=== PATIENT | female | born 1975 | race Caucasian/White ===

== ENCOUNTER 2017-03-16 23:52 | Emergency (ER) | payer MEDICAID ==
[~2017-03-16] VITALS: Ht 165.1 cm; Wt 82.8 kg
[2017-03-17 01:02] VITALS: Ht 165.1 cm; Wt 82.8 kg
[2017-03-17] MEDS ORDERED: CETI10CA PO (04:34)
[2017-03-17] MEDS ORDERED: GUAI473L22 PO (04:34)
[2017-03-17] MEDS ORDERED: IBUP-1542 PO (04:34)
[2017-03-17] MEDS ORDERED: ALBU8.5H3 INH (04:34)
--- NOTE | 2017-03-17 05:05 | ERD ---
ER Documentation Chief Complaint Chief Complaint cough, congestion, fever x 1 week. family w/ same symptoms HPI 42-year-old female presents to the emergency department for complaints of cough congestion runny nose for 1 week. Patient has been having dry cough and fever. Patient does not have any fever at this time, last fever episode was 2 days ago. Patient has wheezing at times. Patient is not have any sore throat or ear pain. Patient denies any chest pain or palpitations. ROS All systems reviewed and are negative except as per history of present illness. Medications Home Meds Active Scripts Albuterol Sulfate* (Proair HFA*) 8.5 Gm Hfa.aer.ad, 2 PUFF INH Q4H Y for WHEEZING AND SOB, #1 INHALER Prov:EMANUEL MCKENNA NP 03/17/17 Ibuprofen* (Motrin*) 600 Mg Tab, 600 MG PO Q6H Y for PAIN AND OR ELEVATED TEMP, #30 TAB Prov:EMANUEL MCKENNA NP 03/17/17 Cetirizine Hcl* (Zyrtec*) 10 Mg Capsule, 10 MG PO DAILY, #30 TAB.CHEW Prov:EMANUEL MCKENNA NP 03/17/17 Guaifenesin-Codeine Phosphate* (Guaifenesin* AC Cough Syrup) 473 Ml Liquid, 10 ML PO Q4H Y for COUGH, #60 ML Prov:EMANUEL MCKENNA NP 03/17/17 Allergies Allergies: Coded Allergies: No Known Drug Allergy (Verified Allergy, Unknown, 10/16/13) PMhx/Soc Medical and Surgical Hx: pt denies Medical Hx History of Surgery: Yes (cholecystectomy) Hx Alcohol Use: No Hx Substance Use: No Hx Tobacco Use: No Smoking Status: Never smoker FmHx Family History: No coronary disease, No diabetes, No other Physical Exam Vitals Vital Signs Date Time Temp Pulse Resp B/P Pulse Ox O2 Delivery O2 Flow Rate FiO2 03/17/17 01:02 97.0 59 18 127/75 99 Physical Exam GENERAL: The patient is well developed and appropriate for usual state of health, in no apparent distress. CHEST: Clear to auscultation bilaterally. There are no rales, wheezes or rhonchi. HEART: Regular rate and rhythm. No murmurs, clicks, rubs or gallops. No S3 or S4. ABDOMEN: Soft, nontender and nondistended. Good bowel sounds. No rebound or guarding. No gross peritonitis. No gross organomegaly or masses. No Davis sign or McBurney point tenderness. BACK: No midline or flank tenderness. EXTREMITIES: Equal pulses bilaterally. There is no peripheral clubbing, cyanosis or edema. No focal swelling or erythema. Full range of motion. Grossly neurovascularly intact. NEURO: Alert and oriented. Cranial nerves 2-12 intact. Motor strength in all 4 extremities with 5/5 strength. Sensation grossly intact. Normal speech and gait. SKIN: There is no apparent rash or petechia. The skin is warm and dry. HEMATOLOGIC AND LYMPHATIC: There is no evidence of excessive bruising or lymphedema. No gross cervical, axillary, or inguinal lymphadenopathy. Procedures/MDM Medical Decision Making: Patient symptoms are most likely consistent with acute bronchitis, which viral in origin. There is low suspicion for Pneumonia at this time since patients lungs sounds are clear, patient O2 saturation is normal and patient doesnt show any respiratory distress. Patients chest xray doesnt show infiltrates or any other cardiopulmonary emergencies at this time. There is low suspicion for other cardiopulmonary emergencies at this time such as CHF, Pulmonary Embolism, Pneumothorax, Aortic Aneurysm or any other cardiopulmonary emergencies at this time. There is low suspicion for sepsis. Patient appears well and is hemodynamically stable. Fever is controlled with medicines. Disposition: Home. Condition: Stable Prescriptions: Albuterol ibuprofen Zyrtec guaifenesin with codeine Instructions: Patient is advised to take medications as prescribed. Patient is advised to rest. Patient advised to increase fluid intake, do humidifier at home and if possible, do salt water gargles. Patient is advised that if symptoms are worse, shortness of breath, uncontrolled fever, stridor, vomiting, worst signs and symptoms to return to emergency department immediately. Otherwise, patient is advised to follow up with primary doctor in 5-7 days. Disclaimer: Inadvertent spelling and grammatical errors are likely due to EHR/ dictation software use and do not reflect on the overall quality of patient care. Also, please note that the electronic time recorded on this note does not necessarily reflect the actual time of the patient encounter. Departure Diagnosis: Primary Impression: Acute bronchitis Bronchitis organism: unspecified organism Qualified Code: J20.9 - Acute bronchitis, unspecified organism Condition: Stable Patient Instructions: Bronchitis With Wheezing (Adult) EMANUEL MCKENNA NP Mar 17, 2017 05:05
[2017-03-17 05:09] VITALS: BP 139/82; PULSE 75; RESP 20; TEMP 96.8
== END 2017-03-17 05:10 | disposition home or self-care (01) ==
LOC: FTE 23:52
DX: J20.9 Acute bronchitis, unspecified (principal)
CPT/HCPCS: 99283

== ENCOUNTER 2018-06-25 15:14 | Emergency (ER) | payer MEDICAID, OTHER ==
[~2018-06-25] VITALS: Wt 90.0 kg
[~2018-06-25 15:14] MED LIST: ALBU8.5H8 INH; CETI10CA PO; GUAI473L22 PO; IBUP-1542 PO
[2018-06-25 15:17] VITALS: BP 140/70; PULSE 71; RESP 18
[2018-06-25] MEDS ORDERED: KETOROLAC 30 MG INJ IM STA (16:48)
[2018-06-25] MEDS ORDERED: D-ME473S2 PO (17:39)
[2018-06-25] MEDS ORDERED: IBUP-1542 PO (17:39)
[2018-06-25] MEDS ORDERED: AZIT250T PO (17:39)
--- NOTE | 2018-06-25 17:42 | ERD ---
ER Documentation Chief Complaint Chief Complaint FLU LIKE SYMPTOMS,COUGH,BODY ACHES HPI 43-year female presents with productive cough, body aches which she states is been for the last month. She denies abdominal pain, diarrhea, vomiting. She denies chest pain. She may have had tactile fevers but no measured temperature. Has not been seen for this prior. ROS All systems reviewed and are negative except as per history of present illness. Medications Home Meds Active Scripts Ibuprofen* (Motrin*) 600 Mg Tab, 600 MG PO Q6, #15 TAB Prov:ROMY WALKER MD 06/25/18 Dextromethorphan Hb-Promethazine Hcl* (Promethazine DM* Syrup) 473 Ml Syrup, 5 ML PO Q6 PRN for COUGH for 5 Days, ML Prov:ROMY WALKER MD 06/25/18 Azithromycin* (Zithromax*) 250 Mg Tablet, 250 MG PO .ZPACK DIRECTED, #6 TAB TAKE 500 MG (2 TABS) THE FIRST DAY THEN 250 MG (1 TAB) DAYS 2-5 Prov:ROMY WALKER MD 06/25/18 Albuterol Sulfate* (Proair HFA*) 8.5 Gm Hfa.aer.ad, 2 PUFF INH Q4H PRN for WHEEZING AND SOB, #1 INHALER Prov:EMANUEL MCKENNA NP 03/17/17 Ibuprofen* (Motrin*) 600 Mg Tab, 600 MG PO Q6H PRN for PAIN AND OR ELEVATED TEMP, #30 TAB Prov:EMANUEL MCKENNA NP 03/17/17 Cetirizine Hcl* (Zyrtec*) 10 Mg Capsule, 10 MG PO DAILY, #30 TAB.CHEW Prov:EMANUEL MCKENNA NP 03/17/17 Guaifenesin-Codeine Phosphate* (Guaifenesin* AC Cough Syrup) 473 Ml Liquid, 10 ML PO Q4H PRN for COUGH, #60 ML Prov:EMANUEL MCKENNA NP 03/17/17 Allergies Allergies: Coded Allergies: No Known Drug Allergy (Verified Allergy, Unknown, 10/16/13) PMhx/Soc History of Surgery: Yes (cholecystectomy) Hx Alcohol Use: No Hx Substance Use: No Hx Tobacco Use: No Smoking Status: Never smoker FmHx Family History: No diabetes, No coronary disease, No other Physical Exam Vitals Vital Signs Date Temp Pulse Resp B/P (MAP) Pulse Ox O2 O2 Flow FiO2 Time Delivery Rate 06/25/18 98.4 71 18 140/70 99 15:17 (93) Physical Exam Const: No acute distress Head: Atraumatic Eyes: Normal Conjunctiva ENT: Normal External Ears, Nose and Mouth. Oropharynx normal. TMs normal Neck: Full range of motion. No meningismus. Resp: Clear to auscultation bilaterally. Rhonchi without rales, wheezing or retractions. Cardio: Regular rate and rhythm, no murmurs Abd: Soft, non tender, non distended. Normal bowel sounds Skin: No petechiae or rashes Back: No midline or flank tenderness Ext: No cyanosis, or edema Neur: Awake and alert Psych: Normal Mood and Affect Results 24 hrs Laboratory Tests Test 06/25/18 17:00 POC Beta HCG, Qualitative NEGATIVE Current Medications Medications Dose Sig/Bree Start Time Status Last (Trade) Ordered Route PRN Stop Time Admin Dose Reason Admin Ketorolac 30 mg ONCE STAT 06/25/18 DC 06/25/18 Tromethamine IM 16:48 06/25/18 17:05 (Toradol) 16:49 Procedures/MDM Chest X-ray 1V Interpreted by me: Soft Tissue: No acute abnormalities Bones: No acute abnormalities Mediastinum/Cardiac Silhouette/Lungs: No acute abnormalities. Impression- normal 1 view chest x-ray Patient presents with productive cough your symptoms of body aches over the last month. She has no evidence of hypoxemia, respiratory distress, signs of pneumonia. She has no signs of abdominal pain, chest pain, additional concerning symptoms. We will treat empirically given the duration with Zithromax, promethazine, ibuprofen, primary care follow-up and return precautions. The patient was stable with no new complaints during the ER course. Clinically, there is no current evidence to suggest meningitis, sepsis, acute abdomen, pneumonia, stroke, acute coronary syndrome, pulmonary embolism, aortic dissection or any other emergent condition appearing to require further evaluation or hospitalization. Patient counseled regarding my diagnostic impression and care plan. Prior to discharge all questions answered. Pt agrees with treatment plan and understands strict return precautions. Pt is instructed to follow up with primary care provider within 24-48 hours. Precautionary ins tructions provided including instructions to return to the ER if not improving or for any worsening or changing symptoms or concerns. Departure Diagnosis: Primary Impression: Upper respiratory infection URI type: unspecified URI Qualified Codes: J06.9 - Acute upper respiratory infection, unspecified Condition: Stable Patient Instructions: Bronchitis, Antiobiotic Treatment (Adult) Referrals: DOCTOR,NOT ON STAFF (PCP) Additional Instructions: X-ray appears normal. Recheck for new or worsening symptoms with primary care doctor. ROMY WALKER MD Jun 25, 2018 17:42
== END 2018-06-25 17:56 | disposition home or self-care (01) ==
LOC: FTE 15:14
DX: J06.9 Acute upper respiratory infection, unspecified (principal)
CPT/HCPCS: 71045; 81025; 96372; 99284; J1885